=== PATIENT | male | born 2000 | race Two or more races ===

== ENCOUNTER 2023-06-17 15:49 | Emergency (ER) | payer MEDICAID ==
[~2023-06-17] VITALS: Ht 185.4 cm; Wt 100.2 kg
[2023-06-17] MEDS ORDERED: ACETAMINOPHEN 325 MG TAB PO ONE (16:45)
[2023-06-17 18:47] VITALS: BP 143/86; PULSE 115; RESP 18; O2SAT 99
[2023-06-17 19:13] VITALS: TEMP 98.2
[2023-06-17 19:55] LABS: Urine Bacteria NONE SEEN /hpf (None Seen); Urine Blood Negative /uL (Negative); Urine Clarity Clear (Clear); Urine Color Yellow (Yellow); Urine Mucus FEW (None Seen); Urine Protein, UAD 1+ (Negative); Urine Specific Gravity 1.047 (1.001-1.035); Urine WBC 1 /hpf (0 - 3); Urine pH 6.5 (5.0-8.0)
[2023-06-17 20:45] LABS: COVID19 ANTIGEN SOFIA FIA POSITIVE (NEGATIVE)
[2023-06-17] MEDS ORDERED: AZIT-74 PO (20:56)
[2023-06-17] MEDS ORDERED: BENZ200C64 PO (20:56)
[2023-06-17] MEDS ORDERED: IBUP1TAB5 PO (20:56)
[2023-06-17] MEDS ORDERED: DEX4T PO (20:56)
[2023-06-17] MEDS ORDERED: ALBUAER3 IN (20:56)
[2023-06-17] MEDS ORDERED: AZITHROMYCIN 250 MG TAB PO ONE (21:00)
[2023-06-17] MEDS ORDERED: DexAMETHasone SOD PHOS 10MG/1ML VIAL INJ IM ONE (21:00)
== END 2023-06-17 21:25 | disposition home or self-care (01) ==
LOC: ER 15:49
DX: U07.1 COVID-19 (principal); J20.8 Acute bronchitis due to other specified organisms; R50.9 Fever, unspecified
CPT/HCPCS: 36415; 71045; 81001; 87426; 96372; 99284; J1100